=== PATIENT | female | born 1985 | race Caucasian/White ===

== ENCOUNTER 2019-02-17 17:23 | Emergency (ER) | payer BC ==
[~2019-02-17] VITALS: Ht 165.1 cm; Wt 103.6 kg
[2019-02-17] MEDS ORDERED: SODIUM CHLORIDE FLUSH 10ML SYR IVF ONE (18:00)
--- NOTE | 2019-02-17 20:32 | NUR ---
TO ROOM FROM LOBBY. NAD.
[2019-02-17] MEDS ORDERED: KETOROLAC 30 MG/1 ML IM ONE (21:00)
[2019-02-17] MEDS ORDERED: PROMETHAZINE 25 MG/ML, 1ML IM ONE (21:00)
[2019-02-17] MEDS ORDERED: PROMETHAZINE 25 MG/ML, 1ML ONE (21:18)
[2019-02-17] MEDS ORDERED: KETOROLAC 30 MG/1 ML ONE (21:18)
--- NOTE | 2019-02-17 21:29 | NUR ---
Pt got hit in head by 60lb door yesterday. No LOC, no vomiting. Nausea and PERKINS.
[2019-02-17 22:30] VITALS: BP 146/81
== END 2019-02-17 22:32 | disposition home or self-care (01) ==
LOC: ED 21:10
DX: S06.0X0A Concussion without loss of consciousness, initial encounter (principal); S09.8XXA Other specified injuries of head, initial encounter; Z88.0 Allergy status to penicillin; W40.8XXA Explosion of other specified explosive materials, initial encounter; Y93.89 Activity, other specified; Y92.89 Other specified places as the place of occurrence of the external cause; Y99.8 Other external cause status
CPT/HCPCS: 70450; 72072; 72125; 96372; 99284; J1885